=== PATIENT | male | born 1975 | race Caucasian/White ===

== ENCOUNTER 2020-09-14 16:20 | Emergency (ER) | payer OTHER, SELFPAY ==
[2020-09-14 16:54] VITALS: BP 155/82; PULSE 93; RESP 14; TEMP 36.7; O2SAT 97
--- NOTE | 2020-09-14 17:43 | PC.NURSE ---
patient states he broke his neck while on vacation in [place]. arrives to er with halo in place. reports that he is out of pain medication and is unable to find a neurologist
[2020-09-14 18:15] VITALS: BP 148/72; PULSE 78; RESP 18; O2SAT 99
--- NOTE | 2020-09-14 18:54 | ED.GENADULT ---
HPI - General Adult General Chief complaint: Unspecified Stated complaint: right arm numbness, Pt. in halo Time Seen by Provider: 09/14/20 18:14 Source: patient Mode of arrival: ambulatory Limitations: no limitations History of Present Illness HPI narrative: Patient is a 45-year-old male complaining of neck pain and right upper extremity tingling and numbness that started 2 weeks ago when he injured his neck diving on [place] at a [place] in [facility]. Patient states that he broke his multiple cervical vertebra had it operated at [place] 2 weeks ago, had a halo device placed, was advised to follow-up with a neurosurgeon here in [place] but states that he has been calling everywhere and no one is accepting his insurance. Patient denies any weakness of his upper extremities or lower extremities. Patient states that he ran out of his pain medication because he is unable to follow-up with anyone here in [place]. Related Data Allergies Allergy/AdvReac Type Severity Reaction Status Date / Time No Known Allergies Allergy Unverified 04/16/13 16:22 Review of Systems Review of Systems: All systems reviewed & are unremarkable except as noted in HPI and below Constitutional: Constitutional: Denies body ache(s), Denies chills, Denies excessive sweating, Denies fatigue, Denies fever(s), Denies headache(s), Denies lethargy, Denies malaise, Denies weakness and Denies weight loss Eyes: Eyes: Denies blurry vision, Denies change in vision and Denies loss of vision ENT: Denies dizziness, Denies ear discharge, Denies headache(s), Denies lip swelling, Denies epistaxis, Denies nasal congestion, Denies neck pain, Denies throat swelling and Denies tongue swelling Cardiovascular: Cardiovascular: Denies chest pain, Denies chest pain at rest, Denies chest pain with activity, Denies diaphoresis, Denies rapid heart rate, Denies edema, Denies irregular heart rhythm, Denies lightheadedness, Denies palpitations, Denies dyspnea and Denies dyspnea on exertion Respiratory: Respiratory: Denies chest congestion, Denies cough, Denies hemoptysis, Denies dyspnea and Denies dyspnea on exertion Gastrointestinal: Gastrointestinal: Denies abdominal pain, Denies melena, Denies hematochezia, Denies diarrhea, Denies nausea, Denies vomiting and Denies hematemesis Musculoskeletal: Musculoskeletal: Denies abnormal gait, Denies deformity, Denies joint swelling, Denies limited range of motion, Denies neck pain and Denies numbness Neurologic: Denies Abnormal speech present, Denies abnormal gait, Denies confusion, Denies dizziness, Denies headache(s), Denies focal weakness, Denies loss of vision, Denies Other visual disturbances, Denies Sensory deficit (Neuro) and Denies weakness Psychiatric: Psychiatric: Denies confusion, Denies depression, Denies auditory hallucinations, Denies homicidal ideation and Denies suicidal ideation Endocrine: Endocrine: Denies cold intolerance, Denies excessive sweating, Denies fatigue, Denies heat intolerance and Denies palpitations Hematologic/Lymphatic: Hematologic/Lymphatic: Denies easy bleeding and Denies easy bruising Allergic/Immunologic: Allergic/Immunologic: Denies lip swelling, Denies throat swelling and Denies tongue swelling [facility] Social History Social History Smoking status: Never smoker Alcohol intake: never Exam Const: General: cooperative, healthy appearing, comfortable, no acute distress, well developed, alert and awake; No confusion Orientation/consciousness: oriented to person, oriented to place, oriented to time, patient oriented x3 and No confusion Limitations: no limitations HENMT: Head: normal to inspection, normocephalic and atraumatic Ears: hearing grossly normal bilaterally, TM normal on the right and TM normal on the left General nose exam: Normal external nose present, Normal nares present and No nasal discharge present Face and sinus: normal facial exam Mouth: Yes Normal oral and palatal mucosa pre
[2020-09-14] MEDS: diazePAM INJ (*CRX) 10 MG/2 ML SYRINGE 5 MG IM (19:09)
[2020-09-14] MEDS: HYDROcodone/acetaminophen (*CRX) 5-325 MG TABLET 1 TAB PO (19:10)
--- NOTE | 2020-10-07 00:45 | ED.GENADULT ---
HPI - General Adult General Chief complaint: Unspecified Stated complaint: right arm numbness, Pt. in halo Time Seen by Provider: 09/14/20 18:14 Source: patient Mode of arrival: ambulatory Limitations: no limitations Related Data Allergies Allergy/AdvReac Type Severity Reaction Status Date / Time No Known Allergies Allergy Unverified 04/16/13 16:22 [facility] Past Medical History Medical History (Updated 10/07/20 @ 00:46 by Balaji Alberto MD) Cervical spine fracture Social History Social History Smoking status: Never smoker Alcohol intake: never Course Vital Signs Vital signs: Vital Signs Temperature 36.7 C 09/14/20 16:54 Pulse Rate 93 09/14/20 16:54 Respiratory Rate 14 09/14/20 16:54 Blood Pressure 155/82 H 09/14/20 16:54 Pulse Oximetry 97 09/14/20 16:54 Temperature 36.7 C 09/14/20 16:54 Pulse Rate 78 09/14/20 18:15 Respiratory Rate 18 09/14/20 18:15 Blood Pressure 148/72 H 09/14/20 18:15 Pulse Oximetry 99 09/14/20 18:15 Medical Decision Making Vital Signs Vital Signs: Vital Signs Temperature 36.7 C 09/14/20 16:54 Pulse Rate 93 09/14/20 16:54 Respiratory Rate 14 09/14/20 16:54 Blood Pressure 155/82 H 09/14/20 16:54 Pulse Oximetry 97 09/14/20 16:54 Temperature 36.7 C 09/14/20 16:54 Pulse Rate 78 09/14/20 18:15 Respiratory Rate 18 09/14/20 18:15 Blood Pressure 148/72 H 09/14/20 18:15 Pulse Oximetry 99 09/14/20 18:15 Discharge Plan Discharge Clinical Impression: Cervical spine fracture Patient Disposition: Home, Self-Care Condition: Stable Instructions: Cervical Fracture (ED), Halo Brace (ED) Prescriptions: New naproxen [Naprosyn] 500 mg tablet 500 mg PO BID PRN (Reason: pain) Qty: 10 RF: 0 hydrocodone-acetaminophen [[place]] 5-325 mg tablet 1 tablet PO Q8H PRN (Reason: pain) Qty: 9 RF: 0 Follow-up/Referrals: Alexander,Chivo Alfaro MD [Primary Care Provider] - 09/16/20 Time of Disposition: 20:14
== END 2020-09-14 20:40 | disposition home or self-care (01) ==
PROVIDERS: Emergency Provider Emergency Medicine; PCP Internal Medicine
DX: S12.9XXD Fracture of neck, unspecified, subsequent encounter (principal); W16.112D Fall into natural body of water striking water surface causing other injury, subsequent encounter
CPT/HCPCS: 96372; 99284; A9270; J1100; J3360

== ENCOUNTER 2021-09-20 18:01 | Emergency (ER) | payer OTHER, SELFPAY ==
--- NOTE | ~2021-09-20 | XR_ITS ---
EXAMINATION: XR chest 2V DATE: 09/20/2021 18:46 INDICATION: Cough for 3 weeks. TECHNIQUE: Frontal and lateral views of the chest were obtained on 3 radiographs. COMPARISON: None. FINDINGS: A calcified right lung nodule and calcified mediastinal lymph nodes are consistent with old granulomatous disease. No pleural effusion or pneumothorax. The heart size is normal. Calcified medi astinal lymph nodes are consistent with old granulomatous disease. IMPRESSION: 1. No acute cardiopulmonary disease. Reviewed, dictated and finalized at location A. [facility]
[2021-09-20 18:09] VITALS: BP 125/80; PULSE 95; RESP 20; TEMP 36.8; O2SAT 96
--- NOTE | 2021-09-20 19:30 | ED.GENADULT ---
HPI - General Adult General Chief complaint: Upper Respiratory Infection Stated complaint: cough and mucus in chest Source: patient Mode of arrival: ambulatory Limitations: no limitations History of Present Illness HPI narrative: Patient presents for evaluation of respiratory symptoms for last 3 weeks. He reports productive cough of white sputum. He denies shortness of breath or chest pain. No fever, chills, nausea, vomiting, diarrhea, generalized body aches, fatigue. No recent sick contacts to his knowledge. No personal history of COVID. He smokes around a half a pack per day. He has not been vaccinated for COVID. He has not tried any therapies to assist with the symptoms. No additional complaints or concerns. Related Data Allergies Allergy/AdvReac Type Severity Reaction Status Date / Time No Known Allergies Allergy Verified 09/20/21 18:30 Review of Systems Review of Systems: CONSTITUTIONAL: Denies fever, chills, or sweats. EYES: Denies visual changes, redness, or discharge. ENT: Denies rhinorrhea, congestion, sore throat, or otalgia. CARDIOVASCULAR: Denies chest pain, palpitations, or edema. RESPIRATORY: Reports cough and wheezing. Denies shortness of breath. GASTROINTESTINAL: Denies abdominal pain, nausea, vomiting, or diarrhea. GENITOURINARY: Denies dysuria or hematuria. SKIN: Denies rash or itching. MUSCULOSKELETAL: Denies back pain, joint pain, or myalgia. NEUROLOGIC: Denies headache, numbness, dizziness, or weakness. PSYCHIATRIC: Denies anxiety or depression. [facility] Past Medical History Medical History (Updated 09/20/21 @ 19:37 by GREGORY Márquez, ) Cervical spine fracture Surgical History Surgical History History of bilateral knee replacement S/P cervical spinal fusion Family History Family History Mother No pertinent past medical history Social History Social History (Updated 09/20/21 @ 19:34 by GREGORY Márquez, ) Smoking packs per day: 0.5 Smoking cigarettes per day: 10.0 Smoking status: Current every day smoker Alcohol intake: never Substance use: never Gender identity (if verbalized by the patient): Male Sexual Orientation (if Verbalized by the Patient): Straight or Heterosexual Spiritual care concerns: No Exam Narrative: GENERAL: Well-appearing, well-nourished, and in no acute distress. HEAD: Normocephalic, atraumatic. EYES: PERRLA and EOMI. ENT: Nares clear, no rhinorrhea or epistaxis. Mucous membranes moist. Oropharynx without tonsillar hypertrophy exudate or other lesions. Bilateral TMs pearly [place] nonbulging NECK: Supple. No adenopathy or masses. No carotid bruits or JVD CHEST: Diffuse inspiratory and expiratory wheezing HEART: Regular rate and rhythm. No murmur heard. Normal peripheral pulses. ABDOMEN: Soft, nontender, nondistended, normal active bowel sounds. EXTREMITIES: Normal range of motion. No edema. SKIN: Warm, dry, no rash. NEURO: No focal deficits. Alert and oriented x3. PSYCH: Normal mood and affect. Course Course Emergency Course: This is a 46-year-old male who presents with 3-week history of cough. COVID was positive. Chest x-ray was normal. I ambulated patient and his saturations remained 97% and above on room air. I did advise that he go to the hospital for further evaluation given diffuse inspiratory and expiratory wheezing which she declined. He was given Decadron here. Will discharge with prednisone. I did advise that he go to the hospital in the event that he develops worsening shortness of breath. He was agreeable to this plan. He should quarantine and alignment with CDC Guidelines. He should follow up outpatient for further evaluation and treatment return for worsening symptoms. Patient in agreement with plan of care Level of Care: Express Care Visit Vital Signs Vital signs: Vital Signs Temperatur
== END 2021-09-20 19:53 | disposition home or self-care (01) ==
PROVIDERS: Emergency Provider Nurse Practitioner; PCP Internal Medicine
DX: U07.1 COVID-19 (principal); F17.210 Nicotine dependence, cigarettes, uncomplicated; Z96.653 Presence of artificial knee joint, bilateral
CPT/HCPCS: 71046; 87426; 96372; 99213; C9803; G0463; J1100